=== PATIENT | female | born 1960 | race Caucasian/White ===

== ENCOUNTER 2021-01-24 18:30 | Inpatient (IN) | payer MEDICAID ==
[~2021-01-24] VITALS: Ht 157.5 cm; Wt 58.5 kg
--- NOTE | 2021-01-24 18:35 | NUR ---
PATIENT WENT TO RESTROOM, A/OX4, VERBALLY RESPONSIVE, ANSWER QUESTIONS, AMBULATORY WITH STEADY GAIT.
--- NOTE | 2021-01-24 18:41 | NUR ---
DR. CHAMPION AT BEDSIDE FOR EVAL.
[2021-01-24 18:58] LABS: BASOPHILS % (AUTO) 0.5 % (0.0-2.0); EOSINOPHILS % (AUTO) 0.7 % (0.0-6.0); HEMATOCRIT 39 % (33-45); HEMOGLOBIN 13.6 g/dL (11.5-14.8); LYMPHOCYTES # (AUTO) 1.8 /CMM (0.8-4.8); LYMPHOCYTES % (AUTO) 23.8 % (20.0-44.0); MEAN CORPUSCULAR HGB CONC 35 g/dl (31.0-36.0); MEAN CORPUSCULAR VOLUME 102 fL (82-100); MONOCYTES # (AUTO) 0.4 /CMM (0.1-1.30); MONOCYTES % (AUTO) 5.9 % (2.0-12.0); NEUTROPHILS # (AUTO) 5.1 /CMM (1.8-8.9); NEUTROPHILS % (AUTO) 69.1 % (43.0-81.0); PLATELET COUNT (AUTO) 197 /CMM (150-450); RED BLOOD CELL COUNT(AUTO) 3.87 MIL/uL (4.0-5.2); WHITE BLOOD COUNT (AUTO) 7.4 K/uL (4.3-11.0)
[2021-01-24] MEDS ORDERED: TDAP [DIPH/PERTUSSIS/TET] 0.5 ML VIAL IM ONE (19:00)
[2021-01-24] MEDS ORDERED: LEVETIRACETAM (500MG) 1,000 MG in IV NS 0.9% 100 ML IV SCH (19:00)
--- NOTE | 2021-01-24 19:11 | NUR ---
a/ox4, no change in loc. had x1 episode of vomiting. patient wheeled out to radiology. Dr. Good made aware
--- NOTE | 2021-01-24 19:17 | NUR ---
PATIENT CAME BACK FROM CT.
[2021-01-24 19:18] LABS: ALANINE AMINOTRANSFERASE 33 U/L (12-78); ALBUMIN 3.4 g/dL (3.4-5.0); ALKALINE PHOSPHATASE 153 U/L (46-116); ASPARTATE AMINOTRANSFERASE 114 U/L (15-37); BILIRUBIN,DIRECT 0.4 mg/dL (0.0-0.2); BILIRUBIN,TOTAL 1.4 mg/dL (0.2-1.0); CALCIUM, SERUM 8.7 mg/dL (8.5-10.1); CARBON DIOXIDE 31 mmol/L (21-32); CHLORIDE 90 mmol/L (98-107); CREATININE 0.7 mg/dL (0.6-1.3); GLUCOSE 148 mg/dL (74-106); SODIUM SERUM 132 mmol/L (136-145); TOTAL PROTEIN, SERUM 7.5 g/dL (6.4-8.2); UREA NITROGEN, BLOOD 12 mg/dL (7-18)
[2021-01-24 19:19] LABS: POTASSIUM 2.5 mmol/L (3.5-5.1)
[2021-01-24] MEDS ORDERED: POTASSIUM CL. PREMIX PERIPHER. 200 ML ONE (19:23)
[2021-01-24] MEDS ORDERED: POTASSIUM CHLORIDE 20 MEQ TAB.PRT.SR PO ONE ×2 (19:30→19:44)
[2021-01-24] MEDS ORDERED: LIDOCAINE 1%-EPI 1:100,000 20 ML VIAL ONE (19:36)
[2021-01-24] MEDS: POTASSIUM CL. PREMIX PERIPHER. 50 ML IV SCH ×5 (19:36→22:27)
--- NOTE | 2021-01-24 19:40 | NUR ---
KOLBY MOORE AT BED SIDE FOR LACERATION CARE
[2021-01-24] MEDS ORDERED: Magnesium 1GM/D5W 100ML PREMIX 200 ML IV ONE (20:22)
[2021-01-24] MEDS: Magnesium 1GM/D5W 100ML PREMIX 100 ML IV SCH ×2 (20:26→21:20)
--- NOTE | 2021-01-24 20:39 | NUR ---
COVID RESULTS NEGATIVE
--- NOTE | 2021-01-24 22:20 | NUR ---
ROOM 114-1
--- NOTE | 2021-01-24 22:20 | NUR ---
[facility] in [facility] - 01/24/21 at 2220 by [place] [id number]
[2021-01-24] MEDS ORDERED: HYDROCODONE/APAP 5/325MG TABLET PO PRN (23:00)
[2021-01-24] MEDS ORDERED: ACETAMINOPHEN 325 MG TABLET PO PRN (23:00)
[2021-01-24] MEDS ORDERED: ONDANSETRON HCL/PF 4 MG/2 ML VIAL IVP PRN (23:00)
--- NOTE | 2021-01-24 23:00 | NUR ---
PT WAS TANSFERRED TO THE FIRST FLOOR UNDER ACLS
[2021-01-24 23:06] VITALS: BP 126/72
--- NOTE | 2021-01-24 23:06 | NUR ---
RN ADMITTING NOTE RECEIVED PATIENT FROM ER VIA JAILYN ACCOMPANIED BY ELIANA TORRES, ANOTHER ER STAFF; ADMITTING DIAGNOSIS: NEW ONSET SEIZURES, AO X 4, IN NO S/SX OF ACUTE DISTRESS AT THIS TIME. NO SOB NOTED. PATIENT'S BREATHING IS EVEN AND UNLABORED, SATURATION AT 100% ON ROOM AIR. SR ON THE MONITOR, HR IS 98. NOTED IV SITE AT RAC 18G, ANG LAC 20G, ALL HUBS FLUSHING AND PATENT, NO S/S OF INFECTION OR INFILTRATION, WITH ONGOING 5TH BAG OF KCL 10 MEQ 50 ML/HR AT 50ML/HR. NOTED LACERATED WOUND AT SCALP WITH AMAN, AND WOUND DRESSING INTACT, NO ACTIVE BLEEDING NOTED. PATIENT KEPT CLEAN , DRY AND COMFORTABLE. SAFETY MEASURES HAVE BEEN PROVIDED AND IMPLEMENTED. PATIENT BED ALARM IS ON. HEAD OF BED ELEVATED. BED IS LOCKED, IN LOWEST POSITION AND SIDE RAILS UP. CALL LIGHT WITHIN REACH OF THE PATIENT. ISOLATION PRECAUTIONS IN PLACE. WILL CONTINUE TO MONITOR AND REASSESS FOR ANY CHANGES. WILL ATTEND TO ALL MD ADMITTING ORDERS.
--- NOTE | 2021-01-24 23:06 | NUR ---
RN NOTE VERIFIED CODE STATUS WITH PATIENT, STATED HER WISH TO BE FULL CODE, ARIANA TORRES WITNESS.
[2021-01-25] VITALS: BP 126/72
[2021-01-25 04:00] VITALS: BP 113/75
[2021-01-25 06:51] LABS: BASOPHILS % (AUTO) 0.5 % (0.0-2.0); EOSINOPHILS % (AUTO) 1.1 % (0.0-6.0); HEMATOCRIT 34 % (33-45); HEMOGLOBIN 11.6 g/dL (11.5-14.8); LYMPHOCYTES % (AUTO) 18.5 % (20.0-44.0); MEAN CORPUSCULAR HGB CONC 34 g/dl (31.0-36.0); MEAN CORPUSCULAR VOLUME 104 fL (82-100); MONOCYTES # (AUTO) 0.4 /CMM (0.1-1.30); MONOCYTES % (AUTO) 7.3 % (2.0-12.0); NEUTROPHILS # (AUTO) 4.1 /CMM (1.8-8.9); NEUTROPHILS % (AUTO) 72.6 % (43.0-81.0); PLATELET COUNT (AUTO) 135 /CMM (150-450); RED BLOOD CELL COUNT(AUTO) 3.23 MIL/uL (4.0-5.2); WHITE BLOOD COUNT (AUTO) 5.7 K/uL (4.3-11.0)
[2021-01-25] MEDS ORDERED: LEVETIRACETAM (500MG) 500 MG in IV NS 0.9% 100 ML IV SCH (07:00)
[2021-01-25 07:44] LABS: ALBUMIN 2.7 g/dL (3.4-5.0); BILIRUBIN,TOTAL 1.1 mg/dL (0.2-1.0); CALCIUM, SERUM 8.1 mg/dL (8.5-10.1); CREATININE 0.5 mg/dL (0.6-1.3); MAGNESIUM 2.1 mg/dL (1.8-2.4); POTASSIUM 3.6 mmol/L (3.5-5.1); TOTAL PROTEIN, SERUM 6.1 g/dL (6.4-8.2)
--- NOTE | 2021-01-25 07:50 | NUR ---
RN OPENING NOTE RECEIVED PATIENT IN BED, AO X 4, ABLE TO RESPONDS ALL STIMULI. SKIN IS WARM TO TOUCH KEEP CLEAN/DRY, INTACT IV SITE. RESPIRATORY EVEN AND UNLABORED IN ROOM AIR, NO DISTRESS OBSERVED. KEPT ELEVATED HOB FOR ENSURE AIRWAY AND ASPIRATION PRECAUTION, ALSO LOWEST BED POSITION FOE SAFETY. CALL LIGHT WITHIN REACH, WILL CONTINUE TO MONITOR.
[2021-01-25 07:55] LABS: THYROID STIMULATING HORMONE 1.205 uIU/mL (0.358-3.74)
[2021-01-25 08:00] VITALS: BP 116/70
[2021-01-25] MEDS ORDERED: LORAZEPAM 0.5 MG TABLET PO PRN (08:00)
[2021-01-25] MEDS: PANTOPRAZOLE 40 MG TABLET.DR PO SCH (08:02)
[2021-01-25] MEDS: FOLIC ACID 1 MG TABLET PO SCH (08:03)
[2021-01-25] MEDS: MULTIVITAMINS,THERAGRAN 1 UDTAB TABLET PO SCH (08:03)
[2021-01-25] MEDS: THIAMINE HCL 100 MG TABLET PO SCH (08:03)
[2021-01-25] MEDS: LEVETIRACETAM (500MG) 500 MG in IV NS 0.9% 100 ML IV SCH ×2 (09:30→19:56)
[2021-01-25 16:00] VITALS: BP 133/85
--- NOTE | 2021-01-25 18:09 | NUR ---
RN CLOSING NOTE PATIENT RESTING IN BED, DOES NO APPEARS DISTRESS OR DISCOMFORT. SKIN IS WARM TOUCH, KEEP CLEAN/DRY, PATIENT IN SUAREZ AND 500 ML OUT PUT. RESPIRATORY EVEN AND UNLABORED WITH OXYGEN AT 2LPM, O2SAT 97%. KEPT ELEVATED HOB FOR ENSURE AIRWAY AND ASPIRATION PRECAUTION, ALSO LOWEST BED POSITION FOR SAFETY. CALL LIGHT WITHIN REACH, WILL ENDORSE POULTRY HATCHERY MAN.
--- NOTE | 2021-01-25 19:00 | NUR ---
RN NOTE RECEIVED PATIENT IN BED, AO X 4, IN NO S/SX OF ACUTE DISTRESS AT THIS TIME. NO SOB NOTED. PATIENT'S BREATHING IS EVEN AND UNLABORED, SATURATION AT 99% ON ROOM AIR. SR ON THE MONITOR, HR IS 92. NOTED IV SITE AT RAC 18G, ANG LAC 20G, ALL HUBS FLUSHING AND PATENT, NO S/S OF INFECTION OR INFILTRATION. NOTED LACERATED WOUND AT SCALP WITH 6 AMAN, AND WOUND DRESSING INTACT, NO ACTIVE BLEEDING NOTED. SEIZURE PRECAUTIONS MAINTAINED. SAFETY MEASURES IMPLEMENTED. PATIENT BED ALARM IS ON. HEAD OF BED ELEVATED. BED IS LOCKED, IN LOWEST POSITION AND SIDE RAILS UP. CALL LIGHT WITHIN REACH OF THE PATIENT. WILL CONTINUE TO MONITOR AND REASSESS FOR ANY CHANGES.
[2021-01-25 20:00] VITALS: BP 135/63
[2021-01-26] VITALS: BP 123/51
[2021-01-26 04:00] VITALS: BP 113/72
[2021-01-26 08:00] VITALS: BP 102/58
[2021-01-26] MEDS: MULTIVITAMINS,THERAGRAN 1 UDTAB TABLET PO SCH (08:14)
[2021-01-26] MEDS: THIAMINE HCL 100 MG TABLET PO SCH (08:14)
[2021-01-26] MEDS: FOLIC ACID 1 MG TABLET PO SCH (08:15)
[2021-01-26] MEDS: PANTOPRAZOLE 40 MG TABLET.DR PO SCH (08:15)
[2021-01-26] MEDS: LEVETIRACETAM (500MG) 500 MG in IV NS 0.9% 100 ML IV SCH (08:15)
[2021-01-26] MEDS ORDERED: THIA100T88 PO (10:04)
[2021-01-26] MEDS ORDERED: LEVE500T9 PO (10:04)
[2021-01-26] MEDS ORDERED: FOLI0.8C PO (10:04)
--- NOTE | 2021-01-26 11:20 | NUR ---
Buffing Machine Tender consult: creative services writer consult requested for substance use. Patient is a 60-year-old, female. SW met with patient at her bedside in the med-surg unit. Patient was alert and oriented x4. Patient was calm and resting. Per chart, patient was brought in by ambulance on 01/24/21 for a seizure. Patient has a history of ETOH binge drinking. Patient stated that she currently lives with family at [address] [address]; [phone]. 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 SW assessed patients history of substance use and patient stated that she has a history of ETOH use. Patient reported, I quit drinking and started drinking again a week ago. Patient reported that she drank alcohol for 2 days straight on Friday [01/21/21]. Patient stated that she has utilized alcohol use resources in the past and plans to utilize them again. Patient denied history of mental illness. Patient denied current suicidal or homicidal ideation. SW offered patient substance use resources. Patient accepted the resources and thanked MINDI. MINDI discussed discharge plan with the patient and patient stated that her significant other, Mello Robles, , will pick her up. Patient plans to return to her prior living arrangement. PLAN: Patient plans to return to her prior living arrangement at the time of discharge. No further SS intervention, however, SW will remain available as needed. Substance use resources provided included: [facility] ([facility]) ; [facility] [address] [facility] [place] [address] ; [facility] [address] [facility] [address] ; [facility] [address] [facility] [address] ; [facility] [address] [facility] [place] [address] ; [facility] [address] [facility] [address] ; [facility] [place]; [facility] [place]; [facility]; [facility]
--- NOTE | 2021-01-26 13:00 | NUR ---
Patient was discharged to home in private car. Patient is alert and oriented x4. Patient did not c/o pain or discomfort. IV to right arm removed and no s/sx of bleeding noted. Patient provided education material along with instructions to follow up with PCP regarding rolando on the scalp. .
== END 2021-01-26 12:15 | disposition home or self-care (01) | DRG 53 ==
LOC: ER 18:35 → TELE1 22:31
PROVIDERS: ADMIT Internal Medicine; ATTEND Nurse Practitioner Acute Care
PROC: 0HQ0XZZ Repair Scalp Skin, External Approach (ICD-10-PCS; principal; 2021-01-24)
DX: G40.509 Epileptic seizures related to external causes, not intractable, without status epilepticus (principal); G93.40 Encephalopathy, unspecified; E83.42 Hypomagnesemia; E87.1 Hypo-osmolality and hyponatremia; E87.6 Hypokalemia; S01.01XA Laceration without foreign body of scalp, initial encounter; D75.89 Other specified diseases of blood and blood-forming organs; F10.139 Alcohol abuse with withdrawal, unspecified; W19.XXXA Unspecified fall, initial encounter; Y92.89 Other specified places as the place of occurrence of the external cause; Y90.1 Blood alcohol level of 20-39 mg/100 ml; Z20.822 Contact with and (suspected) exposure to COVID-19; F32.9 Major depressive disorder, single episode, unspecified; Y90.0 Blood alcohol level of less than 20 mg/100 ml
CPT/HCPCS: 36415; 70450-TC; 71045-TC; 72125-TC; 80048-TC; 80053-TC; 80061-TC; 80076-TC; 83735-TC; 84100-TC; 84443-TC; 84484-TC; 85025-TC; 85730-TC; 87081-TC; 95819-TC; A6403; C9803; G0378; G0480; J1953; J3475; J3480; J3490; J7030; J7050

== ENCOUNTER 2022-11-07 11:33 | Emergency (ER) | payer MEDICAID, OTHER ==
[~2022-11-07] VITALS: Ht 160 cm; Wt 68.0 kg
[~2022-11-07 11:33] MED LIST: FOLI0.8C PO; LEVE500T9 PO; THIA100T88 PO
--- NOTE | 2022-11-07 11:50 | NUR ---
PATIENT DENIES PAIN
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
--- NOTE | 2022-11-07 12:00 | NUR ---
CONTRACT POST OFFICE CLERK AT BEDSIDE
[2022-11-07] MEDS ORDERED: IV NS 0.9% 1,000 ML BAG IV ONE (12:30)
[2022-11-07 12:39] LABS: BASOPHILS # (AUTO) 0.1 K/uL (0.0-0.2); BASOPHILS % (AUTO) 2.8 % (0.0-2.0); EOSINOPHILS % (AUTO) 2.2 % (0.0-6.0); HEMATOCRIT 28 % (33-45); HEMOGLOBIN 9.3 g/dL (11.5-14.8); LYMPHOCYTES % (AUTO) 20.9 % (20.0-44.0); MEAN CORPUSCULAR HGB CONC 33 g/dl (31.0-36.0); MEAN CORPUSCULAR VOLUME 104 fL (82-100); MONOCYTES # (AUTO) 0.5 K/uL (0.1-1.30); NEUTROPHILS % (AUTO) 64.1 % (43.0-81.0); PLATELET COUNT (AUTO) 144 K/uL (150-450); RED BLOOD CELL COUNT(AUTO) 2.71 MIL/uL (4.0-5.2); WHITE BLOOD COUNT (AUTO) 4.6 K/uL (4.3-11.0)
[2022-11-07] MEDS ORDERED: LORAZEPAM INJ 2 MG/ML VIAL ONE (12:46)
[2022-11-07 12:55] LABS: CALCIUM, SERUM 8.1 mg/dL (8.5-10.1); CARBON DIOXIDE 27 mmol/L (21-32); CHLORIDE 106 mmol/L (98-107); CREATININE 0.5 mg/dL (0.6-1.3); GLUCOSE 134 mg/dL (74-106); SODIUM SERUM 143 mmol/L (136-145); UREA NITROGEN, BLOOD 8 mg/dL (7-18)
[2022-11-07] MEDS ORDERED: LORAZEPAM INJ 2 MG/ML VIAL IV ONE (13:00)
[2022-11-07 13:04] LABS: ALANINE AMINOTRANSFERASE 48 U/L (12-78); ALBUMIN 2.7 g/dL (3.4-5.0); ALCOHOL, BLOOD 419 mg/dL (0-0); ALKALINE PHOSPHATASE 170 U/L (46-116); ASPARTATE AMINOTRANSFERASE 98 U/L (15-37); BILIRUBIN,DIRECT 0.9 mg/dL (0.0-0.2); BILIRUBIN,TOTAL 2.8 mg/dL (0.2-1.0); TOTAL PROTEIN, SERUM 7.8 g/dL (6.4-8.2)
[2022-11-07 13:11] LABS: ACETAMINOPHEN < 10 ug/ml (10-30)
[2022-11-07 13:52] LABS: BILIRUBIN,URINE NEGATIVE (NEGATIVE); COLOR,URINE YELLOW (YELLOW); LEUKOCYTE ESTERASE ,URINE NEGATIVE (NEGATIVE); NITRITE, URINE NEGATIVE (NEGATIVE); PROTEIN,URINE NEGATIVE (NEGATIVE); UGLUCOSE NEGATIVE (NEGATIVE)
--- NOTE | 2022-11-07 14:02 | NUR ---
CALLED POISON CONTROL AND SPOKE TO ZEENAT TO NOTIFY THEM ABOUT PT STATUS AND MEDS TAKEN BY THE PT WAS NOTIFIED TO... ADMIT THE PT TO TELE FOR 24 HOUR OBSERVATION MIXTURE OFEFFEXOR AND WELBUTRIM MAY CAUSE SEIZURE- TREAT WITH BENZOS ORDER EKG EVERY 4-6 HOURS QRS WIDENING- TREAT WITH SODIUM BICARB
--- NOTE | 2022-11-07 14:10 | NUR ---
PATIENT TAKEN TO CT VIA JAILYN
--- NOTE | 2022-11-07 16:49 | NUR ---
Patient discharged to home in stable condition, in wheelchair pushed by family. Written and verbal after care instructions given. Patient verbalizes understanding of instruction.
[2022-11-07 16:50] VITALS: BP 125/76
== END 2022-11-07 16:51 | disposition home or self-care (01) ==
LOC: ER 11:45
DX: F10.129 Alcohol abuse with intoxication, unspecified (principal); E80.6 Other disorders of bilirubin metabolism; Z79.899 Other long term (current) drug therapy; Y90.8 Blood alcohol level of 240 mg/100 ml or more; V49.9XXA Car occupant (driver) (passenger) injured in unspecified traffic accident, initial encounter; Y93.89 Activity, other specified; Y92.89 Other specified places as the place of occurrence of the external cause; Y99.8 Other external cause status
CPT/HCPCS: 99285; 96374; 96361; 71045; 72125; 70450; 74176; 85025; 80048; 80076; 81003; 36415; 80143; 80320; 80307; J2060; G0480; J7030